=== PATIENT | male | born 2000 | race Caucasian/White ===

== ENCOUNTER 2021-06-20 03:24 | Emergency (ER) | payer SELFPAY ==
--- NOTE | 2021-06-20 03:42 | ED ---
General Adult HPI - General Stated complaint: Covid Test for [place] Time Seen by Provider: 06/20/21 03:29 Source: patient, RN notes reviewed Mode of arrival: ambulatory Limitations: no limitations - History of Present Illness Initial comments: This a 20-year-old male presents emergency Department with chief complaint of needing COVID-19 testing. Patient states that [place] and needs a test. Patient states he is asymptomatic. Denies fever or chills cough congestion not from diarrhea constipation. Review of Systems ROS Statement: Those systems with pertinent positive or pertinent negative responses have been documented in the HPI. ROS Other: All systems not noted in ROS Statement are negative. General Exam General appearance: alert, in no apparent distress Head exam: Present: atraumatic, normocephalic, normal inspection Respiratory exam: Present: normal lung sounds bilaterally. Absent: respiratory distress, wheezes, rales, rhonchi, stridor Cardiovascular Exam: Present: regular rate, normal rhythm, normal heart sounds. Absent: systolic murmur, diastolic murmur, rubs, gallop, clicks Disposition Clinical Impression: Encounter for laboratory testing for COVID-19 virus Disposition: HOME SELF-CARE Condition: Stable Additional Instructions: Please return to the Emergency Department if symptoms worsen or any other concerns. Is patient prescribed a controlled substance at d/c from ED?: No Referrals: None,Stated [Primary Care Provider] - 1-2 days Time of Disposition: 03:42
[2021-06-20 03:50] VITALS: BP 132/85; PULSE 93; RESP 16; TEMP 97.8
== END 2021-06-20 04:30 | disposition home or self-care (01) ==
LOC: EC 03:24
DX: Z20.822 Contact with and (suspected) exposure to COVID-19 (principal)
CPT/HCPCS: 87635; 99282